=== PATIENT | female | born 1960 | race Caucasian/White ===

== ENCOUNTER → 2016-11-11 | Outpatient (CLI) | payer BC ==
[2016-11-11 09:53] LABS: HEMATOCRIT 41.2 % (36.0-47.0); HEMOGLOBIN 13.7 g/dL (12.0-15.5); HGB HCT DIFFERENCE -0.1; MEAN CORPUSCULAR HGB CONC 33.2 g/dL (32.0-36.0); MEAN CORPUSCULAR VOLUME 90 fl (80-97); RED BLOOD COUNT 4.56 10^6/uL (3.72-5.28); RED CELL DISTRIBUTION WIDTH 13.1 % (11.5-14.0); WHITE BLOOD COUNT 7.8 10^3/uL (4.0-10.5)
[2016-11-11 10:03] LABS: APPEARANCE,URINE TURBID; BILIRUBIN,URINE NEGATIVE (NEGATIVE); GLUCOSE, URINE NEGATIVE (NEGATIVE); KETONES,URINE NEGATIVE (NEGATIVE); LEUKOCYTE ESTERASE,URINE NEGATIVE (NEGATIVE); NITRITE,URINE NEGATIVE (NEGATIVE); PROTEIN,URINE NEGATIVE (NEGATIVE); URINE SPECIFIC GRAVITY 1.024; UROBILINOGEN,URINE NEGATIVE mg/dL (<2.0)
[2016-11-11 10:22] LABS: ALANINE AMINOTRANSFERASE 22 U/L (9-52); ALBUMIN 3.9 g/dL (3.5-5.0); ALKALINE PHOSPHATASE 79 U/L (38-126); ANION GAP 11 (5-19); ASPARTATE AMINO TRANSFERASE 20 U/L (14-36); BILIRUBIN,DIRECT 0.3 mg/dL (0.0-0.4); BILIRUBIN,TOTAL 0.4 mg/dL (0.2-1.3); BLOOD UREA NITROGEN 12 mg/dL (7-20); CALCIUM 9.7 mg/dL (8.4-10.2); CARBON DIOXIDE 25 mmol/L (22-30); CHLORIDE 103 mmol/L (98-107); CHOLESTEROL 186.42 mg/dL (0-200); CREATININE RESULT 0.66 mg/dL (0.52-1.25); Direct HDL 64 mg/dL (>40); GLUCOSE 94 mg/dL (75-110); POTASSIUM 4.5 mmol/L (3.6-5.0); SODIUM 138.5 mmol/L (137-145); TOTAL PROTEIN 7.4 g/dL (6.3-8.2); TRIGLYCERIDES 227 mg/dL (<150)
[2016-11-11 10:33] LABS: DIRECT LDL 94 mg/dL (<100)
[2016-11-11 10:36] LABS: VLDL CHOLESTEROL 45.4 mg/dL (10-31)
== END ==
LOC: OD 09:07
PROVIDERS: ATTEND Physician Assistant Medical
DX: Z00.01 Encounter for general adult medical examination with abnormal findings (principal); E78.2 Mixed hyperlipidemia; I10 Essential (primary) hypertension; R63.5 Abnormal weight gain
CPT/HCPCS: 36415; 80053; 80061; 81001; 83036; 84443; 85027

== ENCOUNTER → 2017-02-03 | Outpatient (CLI) | payer BC, OTHER ==
--- NOTE | 2017-02-03 11:17 | RADIOLOGY REPORT (SQ) ---
EXAM DESCRIPTION: BARIUM SWALLOW PHARYNX ONLY COMPLETED DATE/TIME: 02/03/2017 10:26 am REASON FOR STUDY: GERD (K21.9) K21.9 GASTRO-ESOPHAGEAL REFLUX DISEASE WITHOUT ESOPHAGITIS COMPARISON: None. TECHNIQUE: Under fluoroscopic guidance, patient ingested effervescent granules followed by thick and thin barium. Fluoroscopic spot images and routine radiographic images acquired and stored on PACS. 12 MM BARIUM TABLET GIVEN: Yes. No significant delay in passage. LIMITATIONS: None. FLUOROSCOPY TIME: FLUORO TIME: 21 seconds 10 series of digital images saved to PACS. FINDINGS: NEUROMUSCULAR COORDINATION OF SWALLOW: Normal. No aspiration. ESOPHAGEAL MOTILITY: Normal peristalsis. No esophageal spasm. ESOPHAGEAL MUCOSA: Normal mucosa without masses or ulceration. GASTRO-ESOPHAGEAL JUNCTION: Small hiatal hernia. No Schatzki's ring. Trace gastroesophageal reflux. NON-GI TRACT STRUCTURES: No significant finding. OTHER: No other significant finding. IMPRESSION: Small hiatal hernia. No Schatzki's ring. Trace gastroesophageal reflux. COMMENT: Quality ID 145: Final reports for procedures using fluoroscopy that document radiation exp osure indices, or exposure time and number of fluorographic images (if radiation exposure indices are not available) TECHNICAL DOCUMENTATION: JOB ID: [id number] [employer]- All Rights Reserved
== END ==
LOC: RAD 09:38
PROVIDERS: ATTEND Internal Medicine Gastroenterology
DX: K21.9 Gastro-esophageal reflux disease without esophagitis (principal); K44.9 Diaphragmatic hernia without obstruction or gangrene
CPT/HCPCS: 74210

== ENCOUNTER → 2017-12-15 | Outpatient (CLI) | payer BC ==
--- NOTE | 2017-12-15 14:38 | RADIOLOGY REPORT (SQ) ---
EXAM DESCRIPTION: U/S RETROPERITON LTD COMPLETED DATE/TIME: 12/15/2017 12:00 pm REASON FOR STUDY: FAMILY HISTORY OF POLYCYSTIC KIDNEY Z82.71 FAMILY HISTORY OF POLYCYSTIC KIDNEY COMPARISON: None. TECHNIQUE: Dynamic and static grayscale images acquired of the kidneys and bladder and recorded on P ACS. Additional selected color Doppler and spectral images recorded. LIMITATIONS: Obese patient, difficult ultrasound exam FINDINGS: RIGHT KIDNEY: Normal size, 10.5 cm in length. Normal echogenicity. No solid or suspic ious masses. No hydronephrosis. No calcifications. LEFT KIDNEY: Normal size, 13.3 cm in length. Normal echogenicity. No solid or suspicious masses. No hydronephrosis. No calcifications. BLADDER: No masses. OTHER FINDINGS: No other significant finding. IMPRESSION: LIMITED NEGATIVE STUDY. TECHNICAL DOCUMENTATION: JOB ID: [id number] [employer]- All Rights Reserved Reading location - IP/workstation name: [email or web address]
== END ==
LOC: RAD 12:08
PROVIDERS: ATTEND Physician Assistant Medical
DX: Z82.71 Family history of polycystic kidney (principal)
CPT/HCPCS: 76775

== ENCOUNTER → 2017-12-19 | Outpatient (CLI) | payer SELFPAY ==
--- NOTE | 2017-12-19 10:34 | RADIOLOGY REPORT (SQ) ---
EXAM DESCRIPTION: ELBOW RIGHT OVER 2 VIEWS COMPLETED DATE/TIME: 12/19/2017 10:19 am REASON FOR STUDY: UNSPECIFIED INJURY OF RIGHT ELBOW, INITIAL ENCOUNTER S59.901A UNSPECIFIED INJURY OF RIGHT ELBOW, INITIAL ENCOUNTE COMPARISON: None. NUMBER OF VIEWS: Three views TECHNIQUE: AP, lateral, and oblique radiographic images acquired of the right elbow. LIMITATIONS: None. FINDINGS: MINERALIZATION: Normal. BONES: Acute fracture through the ventral 3rd of the radial head articular surface, with minimal less than 2 mm articular surface displacement. JOINT: Elbow joint effusion is present with elevation of the ventral fat pad SOFT TISSUES: No soft tissue swelling. No foreign body. OTHER: Films were reviewed with the patient IMPRESSION: Acute fracture through the ventral 3rd of the radial head involving the articular surfac e, with minimal less than 2 mm depression of the articular surface. Joint effusion. TECHNICAL DOCUMENTATION: JOB ID: [id number] [employer]- All Rights Reserved Reading location - IP/workstation name: [email or web address]
== END ==
LOC: RAD 10:04
PROVIDERS: ATTEND Family Medicine
DX: S59.901A Unspecified injury of right elbow, initial encounter (principal); X58.XXXA Exposure to other specified factors, initial encounter

== ENCOUNTER → 2018-03-08 | Day surgery (SDC) | payer BC ==
[~2018-03-08] MED LIST: LIDOCAINE 1% INJ-PF (10 MG/ML) 30 ML SDV ONE
--- NOTE | 2018-03-08 14:35 | RADIOLOGY REPORT (SQ) ---
EXAM DESCRIPTION: ARTHRO ELBOW INJECTION; FLUORO/NEEDLE PLACEMENT COMPLETED DATE/TIME: 03/08/2018 1:00 pm REASON FOR STUDY: S52.121K DISP FX OF HEAD OF RIGHT RADIUS, SUBS FOR CLOS FX W NONUNION S52.121K DI SP FX OF HEAD OF RIGHT RADIUS, SUBS FOR CLOS FX W COMPARISON: Right elbow films 12/19/2017 FLUOROSCOPY TIME: 9 1 digital radiographic image saved to PACS. LIMITATIONS: None. PROCEDURE: Procedure, risks, benefits and alternatives explained to patient who then gave written c onsent. The right elbow was marked and a time-out was called for correct marking verification. Entry site marked using fluoroscopic guidance. Elbow prepped and draped using sterile technique. Local anesthesia achieved using 1 mL of 1% lidocaine injection. [address] needle introduced into the abhijit nt space under direct fluoroscopic visualization. Non-ionic contrast instilled to confirm intra-marti cular position. Dilute gadolinium solution then injected. Needle removed and entry site covered wi th sterile bandage. No immediate complications noted. TECHNIQUE: Digital images acquired during fluoroscopy and stored on PACS. Patient immediately take n to the MR suite for additional imaging. INJECTION LOCATION: Right elbow CONTRAST TYPE AND AMOUNT: 0.5 mL of Omnipaque 300 was injected to confirm intra-articular needle plac ement followed by 3 mL of additional dilute Omnipaque [address] arthrogram IMPRESSION: SUCCESSFUL NEEDLE PLACEMENT AND INJECTION FOR RIGHT ELBOW MR ARTHROGRAM. COMMENT: Quality ID 145: Final reports for procedures using fluoroscopy that document radiation exp osure indices, or exposure time and number of fluorographic images (if radiation exposure indices are not available) TECHNICAL DOCUMENTATION: JOB ID: [id number] [employer]- All Rights Reserved Reading location - IP/workstation name: [facility]
--- NOTE | 2018-03-08 14:35 | RADIOLOGY REPORT (SQ) ---
EXAM DESCRIPTION: ARTHRO ELBOW INJECTION; FLUORO/NEEDLE PLACEMENT COMPLETED DATE/TIME: 03/08/2018 1:00 pm REASON FOR STUDY: S52.121K DISP FX OF HEAD OF RIGHT RADIUS, SUBS FOR CLOS FX W NONUNION S52.121K DI SP FX OF HEAD OF RIGHT RADIUS, SUBS FOR CLOS FX W COMPARISON: Right elbow films 12/19/2017 FLUOROSCOPY TIME: 9 1 digital radiographic image saved to PACS. LIMITATIONS: None. PROCEDURE: Procedure, risks, benefits and alternatives explained to patient who then gave written c onsent. The right elbow was marked and a time-out was called for correct marking verification. Entry site marked using fluoroscopic guidance. Elbow prepped and draped using sterile technique. Local anesthesia achieved using 1 mL of 1% lidocaine injection. [address] needle introduced into the abhijit nt space under direct fluoroscopic visualization. Non-ionic contrast instilled to confirm intra-marti cular position. Dilute gadolinium solution then injected. Needle removed and entry site covered wi th sterile bandage. No immediate complications noted. TECHNIQUE: Digital images acquired during fluoroscopy and stored on PACS. Patient immediately take n to the MR suite for additional imaging. INJECTION LOCATION: Right elbow CONTRAST TYPE AND AMOUNT: 0.5 mL of Omnipaque 300 was injected to confirm intra-articular needle plac ement followed by 3 mL of additional dilute Omnipaque [address] arthrogram IMPRESSION: SUCCESSFUL NEEDLE PLACEMENT AND INJECTION FOR RIGHT ELBOW MR ARTHROGRAM. COMMENT: Quality ID 145: Final reports for procedures using fluoroscopy that document radiation exp osure indices, or exposure time and number of fluorographic images (if radiation exposure indices are not available) TECHNICAL DOCUMENTATION: JOB ID: [id number] [employer]- All Rights Reserved Reading location - IP/workstation name: [facility]
--- NOTE | 2018-03-08 16:53 | RADIOLOGY REPORT (SQ) ---
EXAM DESCRIPTION: CT RT UPPER EXTREMITY WITH COMPLETED DATE/TIME: 03/08/2018 1:04 pm REASON FOR STUDY: S52.121K DISP FX OF HEAD OF RIGHT RADIUS, SUBS FOR CLOS FX W NONUNION S52.121K DI SP FX OF HEAD OF RIGHT RADIUS, SUBS FOR CLOS FX W COMPARISON: None. TECHNIQUE: POST ARTHROGRAM Axial imaging performed through the right elbow with reformatted oblique coronal and oblique sagittal imaging windowed for bone and soft tissues. Additional 3D shaded surface display imaging of the elbow was generated and saved to pac's All CT scanners at this facility use dose modulation, iterative reconstruction, and/or weight based d osing when appropriate to reduce radiation dose to as low as reasonably achievable (ALARA). [facility]: Dose Right [facility]: CareDose [facility]: Dose Right [facility]: Teradose 4D [facility]: [employer] Coding RADIATION DOSE: CT Rad equipment meets quality standard of care and radiation dose reduction techniq ues were employed. CTDIvol: 4.5 mGy. DLP: 95 mGy-cm. mGy. LIMITATIONS: None. FINDINGS: SOFT TISSUES: Unremarkable BONY ARCHITECTURE: Nonunited right radial head fracture involving the anterior 3rd of the radial head articular surface. No bony bridging callus is identified. There is 2 mm of articular surface depre ssion along the fracture fragment, and a bony gap of 2 mm between the fracture fragment and adjacent remainder the radial head. These findings are best shown on reconstruction series 2, images 31/66 th rough 34/66. These are also well demonstrated on reconstruction series 301, images 19/47 through 22/ 47. No fracture of the distal humerus or proximal ulna. No intra-articular loose bodies. OTHER: No other significant finding. IMPRESSION: Nonunited right radial head fracture involving the anterior 3rd of the radial head artic ular surface TECHNICAL DOCUMENTATION: JOB ID: [id number] Quality ID # [id number]: Final reports with documentation of one or more dose reduction techniques (e.g., Au tomated exposure control, adjustment of the mA and/or kV according to patient size, use of iterative reconstruction technique) 2010 [employer] All Rights Reserved Reading location - IP/workstation name: [facility]-[email or web address]
== END ==
LOC: RAD 12:21
PROVIDERS: ATTEND Orthopaedic Surgery
DX: S52.121K Displaced fracture of head of right radius, subsequent encounter for closed fracture with nonunion (principal); X58.XXXD Exposure to other specified factors, subsequent encounter
CPT/HCPCS: 77002; 24220; 73201; J3490

== ENCOUNTER → 2018-08-03 | Outpatient (CLI) | payer BC ==
--- NOTE | 2018-08-03 16:31 | RADIOLOGY REPORT (SQ) ---
EXAM DESCRIPTION: CT RT UPPER EXTREMITY WITHOUT COMPLETED DATE/TIME: 08/03/2018 3:12 pm REASON FOR STUDY: CONTRACTURE, RIGHT ELBOW M24.521 CONTRACTURE, RIGHT ELBOW COMPARISON: Elbow arthrogram 03/08/2018 Right elbow films 12/19/2017 TECHNIQUE: Axial imaging performed through the left elbow with reformatted oblique coronal and obliq ue sagittal imaging windowed for bone and soft tissues. The patient was scanned twice, once with the elbow flexed at 90, and once at maximum extension. Additional shaded surface display 3D rendering of the elbow were also generated on an independent wor kstation and saved to pac's All CT scanners at this facility use dose modulation, iterative reconstruction, and/or weight based d osing when appropriate to reduce radiation dose to as low as reasonably achievable (ALARA). [facility]: Dose Right [facility]: CareDose [facility]: Dose Right [facility]: Teradose 4D [facility]: [employer] RADIATION DOSE: CT Rad equipment meets quality standard of care and radiation dose reduction techniq ues were employed. CTDIvol: 4.6 mGy. DLP: 111 mGy-cm. mGy. LIMITATIONS: None. FINDINGS: Streak artifact from metallic right radial head prosthesis. No definite lucency around th e prosthesis worrisome for loosening. On the CT images with the arm at maximal extension, 3 very faint small ossifications are seen along t he anterior aspect of the elbow joint. These are best shown on sagittal reconstruction series 302 im ages 28 through 32, marked with arrows. These measure less than 3 mm in size. The small loose jorge luis s along the anterior joint space are evident on axial series 2, images 43-47. Also on the CT images with arm at maximal extension, an olecranon bony spur 5 mm in size is present o n sagittal reconstruction image 25. This is larger than on previous CT exams, and is interposed betw een the ulna and distal humerus. Today's imaging demonstrates no elbow joint effusion or olecranon bursa fluid. There is an anchor al carla the lateral epicondyle at the attachment of the common extensor tendon. Remainder of the bones and soft tissues of the right elbow are unremarkable. IMPRESSION: Post repair of a right radial head fracture with a radial head metallic prosthesis. No lucency around hardware worrisome for loosening. Common extensor tendon reattachment tack in the lateral epicondyles. 3 small radiodensities are seen over the anterior elbow joint space on sagittal reconstructions which may represent tiny intra-articular loose bodies. A 5 mm posterior loose body may be present between the olecranon and distal humerus. TECHNICAL DOCUMENTATION: JOB ID: [id number] Quality ID # [id number]: Final reports with documentation of one or more dose reduction techniques (e.g., Au tomated exposure control, adjustment of the mA and/or kV according to patient size, use of iterative reconstruction technique) 2010 [employer]- All Rights Reserved Reading location - IP/workstation name: [facility]-
== END ==
LOC: RAD 14:21 → EDSTATUS 14:56
PROVIDERS: ATTEND Orthopaedic Surgery
DX: M24.521 Contracture, right elbow (principal)

== ENCOUNTER → 2018-09-26 | Outpatient (CLI) | payer BC ==
[2018-09-26 09:51] LABS: ABSOLUTE EOSINOPHILS # (AUTO) 0.1 10^3/uL (0.0-0.6); ABSOLUTE LYMPHOCYTES (AUTO) 2.7 10^3/uL (0.5-4.7); ABSOLUTE MONOCYTES (AUTO) 0.4 10^3/uL (0.1-1.4); ABSOLUTE NEUT (AUTO) 2.9 10^3/uL (1.7-8.2); BASOPHILS % (AUTO) 0.5 % (0-2); EOSINOPHILS % (AUTO) 1.3 % (0-6); HEMATOCRIT 38.7 % (36.0-47.0); HEMOGLOBIN 12.9 g/dL (12.0-15.5); MEAN CORPUSCULAR HEMOGLOBIN 30.3 pg (27.0-33.4); MEAN CORPUSCULAR HGB CONC 33.2 g/dL (32.0-36.0); MEAN CORPUSCULAR VOLUME 91 fl (80-97); MONOCYTES % (AUTO) 7.3 % (3-13); PLATELET COUNT 157 10^3/uL (150-450); RED BLOOD COUNT 4.24 10^6/uL (3.72-5.28); RED CELL DISTRIBUTION WIDTH 13.8 % (11.5-14.0); SEGMENTED NEUTROPHILS % (AUTO) 46.9 % (42-78); TOTAL CELLS COUNTED % (AUTO) 100 %; WHITE BLOOD COUNT 6.1 10^3/uL (4.0-10.5)
[2018-09-26 10:09] LABS: ALANINE AMINOTRANSFERASE 19 U/L (9-52); ALBUMIN 3.9 g/dL (3.5-5.0); ALKALINE PHOSPHATASE 66 U/L (38-126); ANION GAP 9 (5-19); ASPARTATE AMINO TRANSFERASE 21 U/L (14-36); BILIRUBIN,DIRECT 0.2 mg/dL (0.0-0.4); BILIRUBIN,TOTAL 0.4 mg/dL (0.2-1.3); BLOOD UREA NITROGEN 14 mg/dL (7-20); CALCIUM 9.2 mg/dL (8.4-10.2); CARBON DIOXIDE 25 mmol/L (22-30); CHLORIDE 107 mmol/L (98-107); CHOLESTEROL 140.71 mg/dL (0-200); GLUCOSE 94 mg/dL (75-110); POTASSIUM 4.5 mmol/L (3.6-5.0); SODIUM 140.8 mmol/L (137-145); TOTAL PROTEIN 6.7 g/dL (6.3-8.2); TRIGLYCERIDES 221 mg/dL (<150)
[2018-09-26 10:19] LABS: DIRECT LDL 68 mg/dL (<100)
[2018-09-26 10:22] LABS: VLDL CHOLESTEROL 44.2 mg/dL (10-31)
[2018-09-27 13:37] LABS: CREATININE URINE 356.3 mg/dL (Not Estab.); MICROALBUMIN URINE 19.7 ug/mL (Not Estab.)
== END ==
LOC: LAB 09:29
PROVIDERS: ATTEND Physician Assistant Medical
DX: E78.5 Hyperlipidemia, unspecified (principal); F41.1 Generalized anxiety disorder; I10 Essential (primary) hypertension; R00.2 Palpitations
CPT/HCPCS: 36415; 80053; 80061; 82043; 82570; 84443; 85025

== ENCOUNTER → 2018-10-22 | Outpatient (CLI) | payer BC ==
--- NOTE | 2018-10-22 12:55 | RADIOLOGY REPORT (SQ) ---
EXAM DESCRIPTION: ELBOW RIGHT OVER 2 VIEWS COMPLETED DATE/TIME: 10/22/2018 12:41 pm REASON FOR STUDY: Z96.621 PRESENCE OF RIGHT ARTIFICIAL ELBOW JOINT Z96.621 PRESENCE OF RIGHT ARTIFI CIAL ELBOW JOINT COMPARISON: 12/19/2017 EXAM PARAMETERS: NUMBER OF VIEWS: Three views. TECHNIQUE: AP, lateral and oblique radiographic images acquired of the right elbow. LIMITATIONS: None. FINDINGS: MINERALIZATION: Normal. BONES: No acute fracture or dislocation. Prior resection of the radial head with small amount of per iosteal reaction noted in the radial neck. There are punctate lucencies noted in the radial neck, be st seen on the lateral projection, uncertain significance. Small bony anchor noted in the capitellum . JOINTS: Small effusion. SOFT TISSUES: No significant soft tissue swelling. OTHER: No other significant finding. IMPRESSION: Prior resection of the radial head with small amount of periosteal reaction noted in the radial neck. There are punctate lucencies noted in the radial neck, best seen on the lateral projec tion, uncertain significance, exclude infection clinically. TECHNICAL DOCUMENTATION: JOB ID: [id number] 2010 [employer]- All Rights Reserved Reading location - IP/workstation name: [employer]
== END ==
LOC: RAD 12:13
PROVIDERS: ATTEND Physician Assistant Medical
DX: M25.421 Effusion, right elbow (principal); Z96.621 Presence of right artificial elbow joint

== ENCOUNTER → 2020-04-17 | Outpatient (CLI) | payer BC ==
[~2020-04-17] MED LIST changes: +COVID-19 VACCINE (PFIZER)/PF 30 MCG/0.3 ML VIAL IM ONE; +EPINEPHRINE INJ/PF 1 MG/1 ML AMPULE IM PRN; -LIDOCAINE 1% INJ-PF (10 MG/ML) 30 ML SDV ONE
== END ==
LOC: EMPHEALTH 11:31
PROVIDERS: ATTEND Internal Medicine
DX: Z23 Encounter for immunization (principal)
CPT/HCPCS: 91300

== ENCOUNTER → 2020-05-08 | Outpatient (CLI) | payer BC | LOC: EMPHEALTH 08:36 | PROVIDERS: ATTEND Internal Medicine | DX: Z23 Encounter for immunization (principal) | CPT/HCPCS: 91300 ==